=== PATIENT | female | born 1990 | race American Indian/Alaskan Native ===

== ENCOUNTER 2016-12-30 00:30 | Emergency (ER) | payer MEDICAID ==
[2016-12-30 00:54] LABS: RBC URINE < 1 /hpf (0-3); URINE BILIRUBIN NEGATIVE (NEGATIVE); URINE BLOOD NEGATIVE (NEGATIVE); URINE COLOR Yellow (YELLOW); URINE GLUCOSE (UA) NORMAL (Normal); URINE KETONE NEGATIVE (NEGATIVE); URINE LEUKOCYTE ESTERASE NEG Leu/uL (Negative); URINE PROTEIN NEGATIVE (NEGATIVE); URINE UROBILINOGEN NORMAL mg/dL (0.2-1.0); WBC URINE 2 /hpf (0-5)
[2016-12-30 01:25] LABS: BASO % 0.9 % (0.0-2.0); EOS # 0.3 K/uL (0.0-0.7); EOS % 7.1 % (0.0-4.0); HEMATOCRIT 39.7 % (34.0-47.0); LYMPH # 2.5 K/uL (1.0-4.3); LYMPH % 53.9 % (20.0-40.0); MEAN CELL VOLUME 90.6 fL (81.0-99.0); MEAN CORPUSCULAR HEMOGLOBIN 29.8 pg (27.0-31.0); MEAN CORPUSCULAR HGB CONC 32.9 g/dL (33.0-37.0); MEAN PLATELET VOLUME 7.6 fL (7.2-11.7); MONO # 0.4 K/uL (0.0-0.8); MONO % 8.1 % (0.0-10.0); NRBC % 0.1 % (0.0-2.0); WHITE BLOOD COUNT 4.6 K/uL (4.8-10.8)
[2016-12-30 02:13] VITALS: O2SAT 100
[2016-12-30 02:22] LABS: CHLORIDE 106 mmol/L (98-107); POTASSIUM 3.5 mmol/L (3.6-5.2); SODIUM 140 mmol/L (132-148)
[2016-12-30 02:24] LABS: ALB/GLOB RATIO 1.3 (1.0-2.1); AST/SGOT 22 U/L (14-36); BILIRUBIN,TOTAL 0.5 mg/dL (0.2-1.3); CARBON DIOXIDE 23 mmol/L (22-30); GFR AFRICAN-AMERICAN > 60; TOTAL PROTEIN 7.3 g/dL (6.3-8.3)
[2016-12-30 02:25] LABS: ALKALINE PHOSPHATASE 57 U/L (38-126); ALT/SGPT 15 U/L (9-52); BLOOD UREA NITROGEN 6 mg/dL (7-17); CALCIUM 9.2 mg/dl (8.6-10.4); GLUCOSE,RANDOM 92 mg/dL (65-105)
--- NOTE | 2016-12-30 03:56 | US ---
EXAM: US First Trimester, Transabdominal CLINICAL HISTORY: 26 years old, female; Signs and symptoms; Lmp or gestational age (in weeks): 10/27/16; Antepartum complications; Bleeding; ; Additional info: , bleeding TECHNIQUE: Real-time transabdominal obstetrical ultrasound of the maternal pelvis and a first trimester with image documentation. COMPARISON: No relevant prior studies available. FINDINGS: Gestation: Gestational sac. Yolk sac. pole. No heartbeat detected. Ama-rump length of 0.25 cm, correlating with gestational age of 5 weeks 6 days. Mean sac diameter of 1.50 cm, correlating with gestational age of 5 weeks 6 days. Uterus/cervix: No subchorionic hemorrhage. No cervical dilatation or effacement. 1.3 x 1.4 x 1.2 cm uterine mass. Ovaries: RIGHT ovary: Normal. LEFT ovary: Probable 1.9 x 1.5 x 1.8 cm corpus luteal cyst. No adnexal masses. Free fluid: No significant free fluid. IMPRESSION: 1. Findings suspicious but not diagnostic of failure. Short-term sonographic followup is recommended. 2. Probable fibroid. 3. Incidental/non-acute findings are described above. EXAM: US , Transvaginal CLINICAL HISTORY: 26 years old, female; Signs and symptoms; Lmp or gestational age (in weeks): 10/27/16; Antepartum complications; Bleeding; ; Additional info: , bleeding TECHNIQUE: Real-time transvaginal obstetrical ultrasound of the maternal pelvis and a first trimester with image documentation. Transvaginal imaging was used for better evaluation of the fetus and adnexa. COMPARISON: No relevant prior studies available. FINDINGS: Gestation: Gestational sac. Yolk sac. pole. No heartbeat detected. Ama-rump length of 0.25 cm, correlating with gestational age of 5 weeks 6 days. Mean sac diameter of 1.50 cm, correlating with gestational age of 5 weeks 6 days. Uterus/cervix: No subchorionic hemorrhage. No cervical dilatation or effacement. 1.3 x 1.4 x 1.2 cm uterine mass. Ovaries: RIGHT ovary: Normal. LEFT ovary: Probable 1.9 x 1.5 x 1.8 cm corpus luteal cyst. No adnexal masses. Free fluid: No significant free fluid.
--- NOTE | 2016-12-30 04:02 | C.PDOC ---
History Of Present Illness Patient is a 26 year old female , LMP 10/27/16 who presents to the ER with a complaint of brown vaginal discharge and right suprapubic pain. Patient is 10 weeks to date. Denies vomiting, back pain or fever. Time Seen by Provider: 12/30/16 01:23 Chief Complaint (Nursing): Abdominal Pain History Per: Patient History/Exam Limitations: no limitations Onset/Duration Of Symptoms: Hrs Current Symptoms Are (Timing): Still Present Location Of Pain/Discomfort: Suprapubic (Right sided) Radiation Of Pain To:: None Quality Of Discomfort: Unable To Describe Associated Symptoms: Other (Vaginal discharge). denies: Fever, Vomiting Exacerbating Factors: None Alleviating Factors: None Recent travel outside of the [place]: No Abnormal Vaginal Bleeding: No Past Medical History Reviewed: Historical Data, Nursing Documentation, Vital Signs Vital Signs: Last Vital Signs Temp 98.1 F 12/30/16 04:18 Pulse 65 12/30/16 04:18 Resp 19 12/30/16 04:18 BP 121/78 12/30/16 04:18 Pulse Ox 100 12/30/16 04:23 - Medical History PMH: Asthma Surgical History: No Surg Hx Family History: States: Unknown Family Hx - Social History Hx Alcohol Use: No Hx Substance Use: No - Immunization History Hx Influenza Vaccination: No Review Of Systems Constitutional: Negative for: Fever Gastrointestinal: Positive for: Abdominal Pain (Right sided suprapubic). Negative for: Vomiting Genitourinary: Positive for: Vaginal Discharge (Brown) Musculoskeletal: Negative for: Back Pain Physical Exam - Physical Exam Appears: Non-toxic Skin: Normal Color, Warm, Dry Head: Atraumatic, Normacephalic Oral Mucosa: Moist Chest: Symmetrical, No Tenderness Cardiovascular: Rhythm Regular, No Murmur Respiratory: Normal Breath Sounds, No Rales, No Rhonchi, No Wheezing Gastrointestinal/Abdominal: Soft, Tenderness (Right suprapubic area), No Guarding, No Rebound Pelvic: No Vaginal Bleeding, No Cervical Motion Tenderness, No Adnexal Tenderness, No Other (No active bleeding) Neurological/Psych: Oriented x3, Normal Speech, Normal Cognition ED Course And Treatment - Laboratory Results Result Diagrams: 12/30/16 01:22 12/30/16 01:22 O2 Sat by Pulse Oximetry: 100 (Room air) Pulse Ox Interpretation: Normal - CT Scan/US Transvaginal US Other Rad Studies (CT/US): Read By Radiologist, Radiology Report Reviewed CT/US Interpretation: EXAM: US , Transvaginal. CLINICAL HISTORY: 26 years old, female; Signs and symptoms; Lmp or gestational age (in weeks): ; Antepartum. complications; Bleeding; ; Additional info: , bleeding. TECHNIQUE: Real-time transvaginal obstetrical ultrasound of the maternal pelvis and a first trimester . with image documentation. Transvaginal imaging was used for better evaluation of the fetus and. adnexa. COMPARISON: No relevant prior studies available. FINDINGS: Gestation: Gestational sac. Yolk sac. pole. No heartbeat detected. [place]-rump length. of 0.25 cm, correlating with gestational age of 5 weeks 6 days. Mean sac diameter of 1.50 cm,. correlating with gestational age of 5 weeks 6 days. Uterus/cervix: No subchorionic hemorrhage. No cervical dilatation or effacement. 1.3 x 1.4 x 1.2 cm. uterine mass. Ovaries: RIGHT ovary: Normal. LEFT ovary: Probable 1.9 x 1.5 x 1.8 cm corpus luteal cyst. No. adnexal masses. Free fluid: No significant free fluid. IMPRESSION: 1. Findings suspicious but not diagnostic of failure. Short-term sonographic followup is. recommended. 2. Probable fibroid. 3. Incidental/non-acute findings are described above. Progress Note: Transvaginal US ordered. Labs and US results d/w pt who was instructed to f/u with OB or ER for follow up with PMD. Reevaluation Time: 05:00 Reassessment Condition: Improved Disposition Counseled Patient/Family Regarding: Diagnosis, Need For Followup, Rx Given - Disposition [facility]] Your OB, Private [Other] Disposition: HOME/ ROUTINE Disposition Time: 04:01 Condition: STABLE Additional Instructions: Please follow up with your OB for repeat BHCG and Ultrasound in 2 days Return to ER if heavy bleeding or worse Instructions: Threatened Miscarriage (ED) - Clinical Impression Clinical Impression: , threatened, early - Scribe Statement The provider has reviewed the documentation as recorded by the Scribsarah Mensah All medical record entries made by the Scribe were at my direction and personally dictated by me. I have reviewed the chart and agree that the record accurately reflects my personal performance of the history, physical exam, medical decision making, and the department course for this patient. I have also personally directed, reviewed, and agree with the discharge instructions and disposition.
[2016-12-30 04:20] VITALS: BP 121/78; PULSE 65; RESP 19; TEMP 98.1
== END 2016-12-30 04:21 | disposition home or self-care (01) ==
LOC: SUPCPDRO 00:30 → C.ER 00:30
DX: O20.0 Threatened abortion (principal); Z3A.10 10 weeks gestation of pregnancy